=== PATIENT | female | born 1955 | race Caucasian/White ===

== ENCOUNTER 2020-11-21 13:57 | Emergency (ER) | payer OTHER, MEDICARE ==
[2020-11-21] MEDS ORDERED: ENDOCET 5-3251 EACH PO (17:51)
== END 2020-11-21 18:10 | disposition home or self-care (01) ==
LOC: ER1 13:57
DX: S32.019A Unspecified fracture of first lumbar vertebra, initial encounter for closed fracture (principal); S32.029A Unspecified fracture of second lumbar vertebra, initial encounter for closed fracture; Z88.1 Allergy status to other antibiotic agents; W19.XXXA Unspecified fall, initial encounter
CPT/HCPCS: 72100; 72131; 73502; 99284